=== PATIENT | male | born 1955 ===

== ENCOUNTER 2020-09-27 13:49 | Emergency (ER) | payer MEDICARE, MEDICAID ==
--- NOTE | 2020-09-27 14:46 | EDM.PDOC ---
ED HPI GENERAL MEDICAL PROBLEM - General Chief Complaint: Neuro Symptoms/Deficits Stated Complaint: STROKE Time Seen by Provider: 09/27/20 14:15 Source of Information: Reports: Patient History Limitations: Reports: No Limitations - History of Present Illness INITIAL COMMENTS - FREE TEXT/NARRATIVE: This 65 yo male patient reports to the ED with right sided weakness. The patient states that he noticed his symptoms starting about 1 week ago. The patient reports he has been experiencing numbness in his right leg, right arm and right side of his face. The patient reports he is able to move his extremities normally, but he is concerned that he has had a stroke. The patient reports he has a history of diabetes. The patient denies any recent falls. The patient reports the numbness travels from his right foot up the right side of his body. The patient reports he has been experiencing increased pain in his right hip and right leg. The patient has not taken anything for temporary symptom relief and has not been seen by his primary care facility. Onset Date: 09/22/20 Duration: Intermittent Location: Reports: Upper Extremity, Right, Lower Extremity, Right Quality: Reports: Dull Severity: Mild Improves with: Reports: None Worsens with: Reports: None Context: Reports: Other Associated Symptoms: Reports: No Other Symptoms - Related Data Allergies Allergy/AdvReac Type Severity Reaction Status Date / Time aspirin Allergy Other Verified 11/11/17 11:41 Home Meds: Home Meds Eszopiclone 3 mg PO ASDIRECTED PRN 11/11/17 [History] Insulin Detemir [Levemir Flextouch] 35 units SQ DAILY 11/11/17 [History] Insulin Lispro [Humalog] 6 units SQ TID 11/11/17 [History] Lisinopril 40 mg PO DAILY 11/11/17 [History] Nebivolol [Bystolic] 10 mg PO DAILY 11/11/17 [History] Sertraline HCl [Zoloft] 150 mg PO DAILY 11/11/17 [History] Sildenafil [Viagra] 100 mg PO ASDIRECTED PRN 11/11/17 [History] cloNIDine [Catapres] 0.1 mg PO DAILY 11/11/17 [History] hydroCHLOROthiazide [Hydrochlorothiazide] 25 mg PO DAILY 11/11/17 [History] Past Medical History HEENT History: Reports: Impaired Vision Cardiovascular History: Reports: Hypertension Respiratory History: Reports: None Genitourinary History: Reports: None Musculoskeletal History: Reports: None Neurological History: Reports: None Psychiatric History: Reports: Depression Endocrine/Metabolic History: Reports: Diabetes, Type I Hematologic History: Reports: None Immunologic History: Reports: None Oncologic (Cancer) History: Reports: None Dermatologic History: Reports: None - Infectious Disease History Infectious Disease History: Reports: None - Past Surgical History Head Surgeries/Procedures: Reports: None Social & Family History - Tobacco Use Tobacco Use Status *Q: Current Every Day Tobacco User Years of Tobacco use: 40 Packs/Tins Daily: 1 Used Tobacco, but Quit: No - Caffeine Use Caffeine Use: Reports: Coffee - Recreational Drug Use Recreational Drug Use: No ED ROS GENERAL - Review of Systems Review Of Systems: Comprehensive ROS is negative, except as noted in HPI. ED EXAM, NEURO - Physical Exam Exam: See Below Exam Limited By: No Limitations General Appearance: Alert, WD/WN, No Apparent Distress Eye Exam: Bilateral Eye: EOMI, Normal Inspection, PERRL Ears: Normal External Exam, Normal Canal, Hearing Grossly Normal, Normal TMs Nose: Normal Inspection, Normal Mucosa, No Blood Throat/Mouth: Normal Inspection, Normal Lips, Normal Teeth, Normal Gums, Normal Oropharynx, Normal Voice, No Airway Compromise Head Exam: Atraumatic, Normocephalic Neck: Normal Inspection, Supple, Non-Tender, Full Range of Motion Cardiovascular: Normal Peripheral Pulses, Regular Rate, Rhythm, No Edema, No Gallop, No JVD, No Murmur, No Rub GI/Abdominal: Normal Bowel Sounds, Soft, Non-Tender, No Organomegaly, No Distention, No Abnormal Bruit, No Mass (Male) Exam: Deferred Rectal (Males) Exam: Deferred Neurological: Alert, Normal Mood/Affect, Normal Dorsiflexion, CN II-XII Intact, Normal Plantar Flexion, Normal Gait, Normal Reflexes, No Motor/Sensory Deficits, Oriented x 3 Back Exam: Normal Inspection, Full Range of Motion, NT Extremities: Normal Inspection, Normal Range of Motion, Non-Tender, No Pedal Edema, Normal Capillary Refill Psychiatric: Normal Affect, Normal Mood Skin Exam: Other (numerous excoriations and healing wounds. The patient reports he has a parasidic infection and he picks the parasites out of his skin. ) Course - Vital Signs Last Recorded V/S: Last Vital Signs Temp 36.2 C 01/26/21 13:59 Pulse 72 09/27/20 14:29 Resp 18 09/27/20 14:29 BP 152/68 H 09/27/20 14:29 Pulse Ox 99 09/27/20 14:29 - Orders/Labs/Meds Orders: Active Orders 24 hr Category Date Time Status EKG Documentation Completion [RC] STAT Care 09/27/20 14:13 Active Glucose [Blood Glucose Check, Bedside] [RC] ONETIME Care 09/27/20 14:14 Active CULTURE BLOOD [BC] Stat Lab 09/27/20 14:24 Received CULTURE URINE [RM] Urgent Lab 09/27/20 15:50 Received Potassium Chloride [Klor-Con 10] Med 09/27/20 17:28 Once 40 meq PO ONETIME ONE Labs: Laboratory Tests 09/27/20 09/27/20 09/27/20 Range/Units 14:24 14:24 14:24 WBC 11.2 H (5.0-10.0) 10^3/uL RBC 4.18 L (4.6-6.2) 10^6/uL Hgb 13.5 L (14.0-18.0) g/dL Hct 37.6 L (40.0-54.0) % MCV 90.0 (80-100) fL MCH 32.3 (27.0-34.0) pg MCHC 35.9 H (33.0-35.0) g/dL Plt Count 214 (150-450) 10^3/uL Neut % (Auto) 76.4 H (42.2-75.2) % Lymph % (Auto) 14.0 L (20.5-50.1) % [place] % (Auto) 7.4 (2-8) % Eos % (Auto) 2.0 (1.0-3.0) % Baso % (Auto) 0.2 (0.0-1.0) % PT 10.1 (9.0-12.0) SEC INR 1.1 (0.9-1.2) D-Dimer, Quantitative 181 (0-400) ng/mL Sodium 140 (136-145) mmol/L Potassium 2.9 L (3.5-5.1) mmol/L Chloride 101 (98-107) mmol/L Carbon Dioxide 34 H (21-32) mmol/L Anion Gap 7.9 (7-13) mEq/L BUN 12 (7-18) mg/dL Creatinine 0.96 (0.70-1.30) mg/dL Est Cr Clr Drug Dosing 82.80 mL/min Estimated GFR (MDRD) > 60 BUN/Creatinine Ratio 12.5 (No establ ref range) Glucose 101 H (74-99) mg/dL POC Glucose (70-105) mg/dl Lactic Acid (0.4-2.0) mmol/L Calcium 8.4 L (8.5-10.1) mg/dL Total Bilirubin 0.5 (0.2-1.0) mg/dL AST 14 L (15-37) U/L ALT 21 (16-63) U/L Alkaline Phosphatase 112 (46-116) U/L Troponin I < 0.017 (0.000-0.056) ng/mL Total Protein 6.9 (6.4-8.2) g/dL Albumin 3.4 (3.4-5.0) g/dL Globulin 3.5 Albumin/Globulin Ratio 1.0 Urine Color (YELLOW) Urine Appearance (CLEAR) Urine pH (5.0-9.0) Ur Specific [place] (1.005-1.030) Urine Protein (NEGATIVE) Urine Glucose (UA) (NEGATIVE) Urine Ketones (NEGATIVE) Urine Occult Blood (NEGATIVE) Urine Nitrite (NEGATIVE) Urine Bilirubin (NEGATIVE) Urine Urobilinogen (0.2-1.0) mg/dL Ur Leukocyte Esterase (NEGATIVE) Urine RBC /HPF Urine WBC (0-5/HPF) /HPF Ur Epithelial Cells (NOT SEEN) /HPF Amorphous Sediment (NOT SEEN) /HPF Urine Bacteria (0-FEW/HPF) /HPF Urine Mucus (NOT SEEN) /LPF 09/27/20 09/27/20 09/27/20 Range/Units 14:24 14:25 15:50 WBC (5.0-10.0) 10^3/uL RBC (4.6-6.2) 10^6/uL Hgb (14.0-18.0) g/dL Hct (40.0-54.0) % MCV (80-100) fL MCH (27.0-34.0) pg MCHC (33.0-35.0) g/dL Plt Count (150-450) 10^3/uL Neut % (Auto) (42.2-75.2) % Lymph % (Auto) (20.5-50.1) % [place] % (Auto) (2-8) % Eos % (Auto) (1.0-3.0) % Baso % (Auto) (0.0-1.0) % PT (9.0-12.0) SEC INR (0.9-1.2) D-Dimer, Quantitative (0-400) ng/mL Sodium (136-145) mmol/L Potassium (3.5-5.1) mmol/L Chloride (98-107) mmol/L Carbon Dioxide (21-32) mmol/L Anion Gap (7-13) mEq/L BUN (7-18) mg/dL Creatinine (0.70-1.30) mg/dL Est Cr Clr Drug Dosing mL/min Estimated GFR (MDRD) BUN/Creatinine Ratio (No establ ref range) Glucose (74-99) mg/dL POC Glucose 108 H (70-105) mg/dl Lactic Acid 1.4 (0.4-2.0) mmol/L Calcium (8.5-10.1) mg/dL Total Bilirubin (0.2-1.0) mg/dL AST (15-37) U/L ALT (16-63) U/L Alkaline Phosphatase (46-116) U/L Troponin I (0.000-0.056) ng/mL Total Protein (6.4-8.2) g/dL Albumin (3.4-5.0) g/dL Globulin Albumin/Globulin Ratio Urine Color Yellow (YELLOW) Urine Appearance Clear (CLEAR) Urine pH 6.0 (5.0-9.0) Ur Specific [place] 1.010 (1.005-1.030) Urine Protein Negative (NEGATIVE) Urine Glucose (UA) Negative (NEGATIVE) Urine Ketones Negative (NEGATIVE) Urine Occult Blood Negative (NEGATIVE) Urine Nitrite Negative (NEGATIVE) Urine Bilirubin Negative (NEGATIVE) Urine Urobilinogen 0.2 (0.2-1.0) mg/dL Ur Leukocyte Esterase Trace H (NEGATIVE) Urine RBC 0-5 /HPF Urine WBC 5-10 H (0-5/HPF) /HPF Ur Epithelial Cells Rare (NOT SEEN) /HPF Amorphous Sediment Occasional (NOT SEEN) /HPF Urine Bacteria Rare (0-FEW/HPF) /HPF Urine Mucus Not seen (NOT SEEN) /LPF Meds: Medications Discontinued Medications Generic Name Dose Route Start Last Admin Trade Name Chris PRN Reason Stop Dose Admin Potassium Chloride 10 meq/ 100 mls @ 100 mls/hr 09/27/20 15:41 09/27/20 15:46 Premix IV 09/27/20 16:40 100 mls/hr ONETIME ONE Administration Potassium Chloride Confirm 09/27/20 16:37 09/27/20 16:53 Kcl In Water 10 Meq/100 Ml Administered 09/27/20 16:38 Not Given Dose 100 mls @ as directed .ROUTE .STK-MED ONE Departure - Departure Time of Disposition: 17:24 Disposition: Home, Self-Care 01 Condition: Fair Clinical Impression: Hypokalemia, Skin sore - Discharge Information *PRESCRIPTION DRUG MONITORING PROGRAM REVIEWED*: Not Applicable *COPY OF PRESCRIPTION DRUG MONITORING REPORT IN PATIENT CINDY: Not Applicable Instructions: Hypokalemia Forms: ED Department Discharge Care Plan Goals: The patient was advised of the examination, lab and CT results during the visit. The patient was given an IV dose of Potassium while in the ED. The patient was also given an oral dose of potassium. The patient was encouraged to apply Aquaphor to his extremities to promote healing of his numerous sores. The patient was also advised to avoid picking and scratching at his extremities. The patient should follow-up with his primary care facility for continued evaluation and further management. If the patient has any additional symptoms or concerns, the patient should either return to the emergency department or visit his primary care facility. Sepsis Event Note (ED) - Evaluation Sepsis Screening Result: No Definite Risk - Focused Exam Vital Signs: Vital Signs Temp Pulse Resp BP Pulse Ox 09/27/20 14:29 72 18 152/68 H 99 09/27/20 13:59 36.2 C 69 18 170/72 H 99 - My Orders Last 24 Hours: My Active Orders 09/27/20 14:13 EKG Documentation Completion [RC] STAT 09/27/20 14:14 Glucose [Blood Glucose Check, Bedside] [RC] ONETIME 09/27/20 14:24 CULTURE BLOOD [BC] Stat 09/27/20 15:50 CULTURE URINE [RM] Urgent 09/27/20 17:28 Potassium Chloride [Klor-Con 10] 40 meq PO ONETIME ONE - Assessment/Plan Last 24 Hours: My Active Orders 09/27/20 14:13 EKG Documentation Completion [] STAT 09/27/20 14:14 Glucose [Blood Glucose Check, Bedside] [] ONETIME 09/27/20 14:24 CULTURE BLOOD [BC] Stat 09/27/20 15:50 CULTURE URINE [] Urgent 09/27/20 17:28 Potassium Chloride [Klor-Con 10] 40 meq PO ONETIME ONE
--- NOTE | 2020-09-27 14:49 | CT ---
EXAMINATION: Head wo Cont SEX: Male AGE: 65 years CLINICAL HISTORY: 65-year-old hypertensive 174 pound diabetic male smoker with RIGHT SIDED WEAKNESS. No comparison CT or MRI exams of the head immediately available at this institution. Scan technique: Volume acquisition of data emergency unenhanced CT scan of the head and brain obtained with the patient lying supine on the Siemens multi slice scanner [place], [place]. All data archived in the PACS system for storage, reformatting axial/sagittal/coronal planes and study (bone/brain windows). Interpretation: 1. Symmetric clear pneumatization of the paranasal and mastoid sinuses. Nasal septum is straight midline. 2. Uniformly thick bony calvarium. No sign of pathologic skeletal lesion, skull fracture, underlying brain contusion or abnormal extracerebral/intracranial epidural or subdural hematoma. 3. Symmetric mild cerebral cortical atrophy with underlying mirror-image normal ventricular system. 4. Multiple scattered areas of decreased attenuation consistent with ischemic infarcts involving basal ganglia & periventricular white matter of both cerebral hemispheres (old parietal-occipital infarct on the left). 5. No supratentorial or posterior fossa mass lesion. 6. No sign of acute intracerebral, intraventricular or subarachnoid bleed. CONCLUSION: Multilevel infarct disease. No cerebral edema, mass, or acute intracranial bleed.
[2020-09-27 14:55] LABS: ANION GAP 7.9 mEq/L (7-13); CHLORIDE,CL 101 mmol/L (98-107); SODIUM,NA 140 mmol/L (136-145)
[2020-09-27] MEDS: Potassium Chloride 10 MEQ in Premix Bag 1 BAG IV ONE (15:46)
[2020-09-27] MEDS: Potassium Chloride 100 ML ONE (16:53)
[2020-09-27] MEDS: Potassium Chloride 10 MEQ Tab.ER PO ONE (17:41)
== END 2020-09-27 18:03 | disposition home or self-care (01) ==
LOC: DL.ED 13:49
DX: E87.6 Hypokalemia (principal); L98.9 Disorder of the skin and subcutaneous tissue, unspecified; I10 Essential (primary) hypertension; E10.9 Type 1 diabetes mellitus without complications; Z88.6 Allergy status to analgesic agent; Z79.899 Other long term (current) drug therapy; Z72.0 Tobacco use
CPT/HCPCS: 36415; 70450; 80053; 81001; 82962; 83605; 84484; 85025; 85379; 85610; 87040; 87086; 93005; 96365; 99283; 99285; A9270; J3480